=== PATIENT | male | born 1940 | race Two or more races ===

== ENCOUNTER 2022-01-06 06:56 | Day surgery (SDC) | payer OTHER ==
[~2022-01-06] VITALS: Ht 177.8 cm; Wt 97.0 kg
[~2022-01-06 06:56] MED LIST: ALOGLIPTIN12.5 M1 PO; AMLO10 PO; Carvedilol12.5 MG PO; ELIQUIS5 M2 PO; FERSU300 PO; METFORMIN ER1000 M1 PO; OMEP20ER PO; POTA10T PO
--- NOTE | 2022-01-06 08:17 | NUR ---
01/06/22 0817 Raul Adair CALL LIGHT WITHIN REACH. FAMILY AT BEDSIDE.
== END 2022-01-06 10:04 | disposition home or self-care (01) ==
LOC: ORSCSDS 06:56
PROVIDERS: Surgery
PROC: 0DB68ZX Excision of Stomach, Via Natural or Artificial Opening Endoscopic, Diagnostic (ICD-10-PCS; principal; 2022-01-06 09:00)
PROC: 0DB58ZX Excision of Esophagus, Via Natural or Artificial Opening Endoscopic, Diagnostic (ICD-10-PCS; principal; 2022-01-06 09:00)
DX: K21.9 Gastro-esophageal reflux disease without esophagitis (principal); K22.70 Barrett's esophagus without dysplasia; K22.5 Diverticulum of esophagus, acquired; K44.9 Diaphragmatic hernia without obstruction or gangrene; R13.10 Dysphagia, unspecified; E11.9 Type 2 diabetes mellitus without complications; I10 Essential (primary) hypertension; Z86.711 Personal history of pulmonary embolism; E78.5 Hyperlipidemia, unspecified; R97.20 Elevated prostate specific antigen [PSA]; Z79.01 Long term (current) use of anticoagulants; Z79.84 Long term (current) use of oral hypoglycemic drugs; Z79.899 Other long term (current) drug therapy; Z87.891 Personal history of nicotine dependence
CPT/HCPCS: 82947; 88305; 88342; J2704; J7120

== ENCOUNTER 2022-08-02 11:17 | Emergency (ER) | payer OTHER ==
[~2022-08-02] VITALS: Ht 177.8 cm; Wt 90.7 kg
[~2022-08-02 11:17] MED LIST changes: +GLIP5 PO
[2022-08-02] MEDS ORDERED: OMEP20ER (12:05)
[2022-08-02] MEDS ORDERED: Neurontin 100100 MG PO ×2 (13:46→14:43)
== END 2022-08-02 13:55 | disposition home or self-care (01) ==
LOC: ER 11:17
DX: M54.42 Lumbago with sciatica, left side (principal); K21.9 Gastro-esophageal reflux disease without esophagitis; E11.9 Type 2 diabetes mellitus without complications; I10 Essential (primary) hypertension; Z79.01 Long term (current) use of anticoagulants; Z79.899 Other long term (current) drug therapy; Z79.84 Long term (current) use of oral hypoglycemic drugs; Z88.2 Allergy status to sulfonamides; Z88.8 Allergy status to other drugs, medicaments and biological substances
CPT/HCPCS: A9270

== ENCOUNTER 2022-10-30 08:35 | Day surgery (SDC) | payer OTHER ==
[~2022-10-30] VITALS: Ht 177.8 cm; Wt 92.5 kg
[~2022-10-30 08:35] MED LIST changes: +ASPI81CH PO; +ATOR40TA PO; +Neurontin 100100 MG PO
[2022-10-30 09:30] LABS: BASOPHILS ABSOLUTE AUTO 0.05 K/mm3 (0.00-0.23); BASOPHILS PERCENT AUTO 1 % (0-2); EOSINOPHILS ABSOLUTE AUTO 0.61 K/mm3 (0.00-0.68); EOSINOPHILS PERCENT AUTO 8 % (0-6); Hematocrit 42.2 % (37.0-53.0); Hemoglobin 14.4 g/dL (13.5-17.5); IMMATURE GRAN ABSOLUTE AUTO 0.02 K/mm3 (0.00-0.10); IMMATURE GRAN PERCENT AUTO 0 % (0-1); LYMPHOCYTES ABSOLUTE AUTO 2.23 K/mm3 (0.84-5.20); LYMPHOCYTES PERCENT AUTO 29 % (21-46); MONOCYTES ABSOLUTE AUTO 0.66 K/mm3 (0.16-1.47); MONOCYTES PERCENT AUTO 9 % (4-13); Mean Corpuscular HGB 31.5 pg (26.0-34.0); Mean Corpuscular HGB Conc 34.1 g/dL (31.5-36.5); Mean Corpuscular Volume 92 fL (80-100); Mean Platelet Volume 11.3 fL (9.1-12.4); NEUTROPHILS ABSOLUTE AUTO 4.03 K/mm3 (1.96-9.15); NEUTROPHILS PERCENT AUTO 53 % (41-73); Platelet Count 192 K/mm3 (150-400); RDW Coefficient Variation 13.4 % (11.7-14.2); RDW Standard Deviation 45.6 fL (35.1-46.3); Red Blood Cell Count 4.57 M/mm3 (4.30-5.90)
[2022-10-30 09:47] LABS: International Normalized Ratio 1.04; Prothrombin Time Results 10.9 Sec (9.7-11.5)
[2022-10-30 09:49] LABS: Bun/Creatinine Ratio 13.7 (12.0-20.0); Calcium, Blood 8.4 mg/dL (8.5-10.1); Creatinine, Blood 1.02 mg/dL (0.60-1.20); Potassium, Blood 4.3 mmol/L (3.5-5.5)
--- NOTE | 2022-10-30 11:20 | NUR ---
2 CC OF AIR REMOVED FROM TR BAND. SITE C/D/I. NO EVIDENCE OF HEMATOMA. PATIENT DENIES ANY NUMBNESS OR TINGLING. VSS ON ROOM AIR.
--- NOTE | 2022-10-30 11:40 | NUR ---
ALL AIR REMOVED FROM TR BAND. SITE C/D/I, SOFT/NONTENDER. NO EVIDENCE OF HEMATOMA. PATIENT SITTING UPRIGHT IN RECLINER, CONVERSING APPROPRIATELY WITH FAMILY. VSS ON ROOM AIR.
--- NOTE | 2022-10-30 12:30 | NUR ---
PATIENT DISCHARGED AT THIS TIME VIA WHEELCHAIR. PATIENT DISCHARGE INSTRUCTIONS REVIEWED WITH PATIENT AND SPOUSE. CLOTH DOT APPLIED TO R RADIAL ACCESS SITE. SITE C/D/I, SOFT/NONTENDER, NO EVIDENCE OF HEMATOMA. VSS ON ROOM AIR.
== END 2022-10-30 12:50 | disposition home or self-care (01) ==
LOC: MHTC 08:35
PROVIDERS: Internal Medicine Cardiovascular Disease
DX: I25.10 Atherosclerotic heart disease of native coronary artery without angina pectoris (principal); I44.0 Atrioventricular block, first degree; I45.2 Bifascicular block; I10 Essential (primary) hypertension; E78.5 Hyperlipidemia, unspecified; E11.9 Type 2 diabetes mellitus without complications; Z88.2 Allergy status to sulfonamides; Z88.8 Allergy status to other drugs, medicaments and biological substances; Z79.01 Long term (current) use of anticoagulants; Z79.84 Long term (current) use of oral hypoglycemic drugs; Z79.899 Other long term (current) drug therapy
CPT/HCPCS: 76937; 80048; 85025; 85610; 93454; 99152; 99153; A9270; C1769; C1887; C1894; J2250; J3010; J7030; J7050; Q9967

== ENCOUNTER 2024-07-28 08:13 | Observation (INO) | payer OTHER ==
[~2024-07-28] VITALS: Ht 175.3 cm; Wt 89.6 kg
[2024-07-28] VITALS (27 sets, daily range): BP systolic 122–206; BP diastolic 60–97
[~2024-07-28 08:13] MED LIST changes: +ALOGLIPTIN25 M1 PO; +ASCORBIC ACID500 MG PO; +Acetaminophen 500 MG Tab PO SCH; +CALCIUM CITRATE PO; +FERSU300; +JARDIANCE10 MG PO; +LOSARTAN POTAS100 M1 PO; +Lactated Ringer's 1,000 ML IV SCH; +Lopressor 25 mg25 MG PO; +VITAMIN D310 MC4 PO; +Vitamin B Comple1 EA PO; +ZINC15 PO
--- NOTE | 2024-07-28 08:47 | NUR ---
Ambulatory in Day Surgery History, Chart, Medications and Allergies reviewed before start of procedure.Pt reports 5/10 low back pain.Lungs clear T/O to Auscultation. Patient confirms NPO status and agrees with scheduled surgery. Patient States Post-Procedure ride home has been arranged.
[2024-07-28] MEDS ORDERED: Magnesium Sulfate 500 MG / ML 2ML Vial IV ONE (10:30)
[2024-07-28] MEDS ORDERED: Citric Acid/Sodium Citrate 30 ML BTL PO ONE (10:40)
[2024-07-28] MEDS ORDERED: Bupivacaine 0.5% HCl 5 MG/ML 30MLVIAL ONE (10:44)
[2024-07-28] MEDS ORDERED: propofoL 20 ML IV ONE (10:45)
[2024-07-28] MEDS ORDERED: FentaNYL Citrate 50 MCG/ML 2 ML Injection ONE (10:45)
[2024-07-28] MEDS ORDERED: FLU VACC TS2024-25(6MOS UP)/PF 45 MCG/0.5 ML SYRINGE IM PRN (10:55)
[2024-07-28] MEDS ORDERED: OxyCODONE HCL 5 MG TAB PO PRN ×2 (11:00→20:06)
[2024-07-28] MEDS ORDERED: Ondansetron HCl 2 MG / ML 2ML Vial IV PRN (11:00)
[2024-07-28] MEDS ORDERED: HYDROmorphone HCl/Pf 1MG SYR IV PRN (11:00)
[2024-07-28] MEDS ORDERED: Acetaminophen 325 MG TABLET PO PRN (11:00)
[2024-07-28] MEDS ORDERED: Insulin Regular 100 UNIT/ML 10ML Vial SC SCH (11:30)
[2024-07-28] MEDS ORDERED: Metoclopramide HCl 5MG / ML 2ML Vial ONE (11:48)
[2024-07-28] MEDS ORDERED: Rocuronium Bromide 10 MG/ML 5ML Injection IV ONE ×2 (11:48→12:16)
[2024-07-28] MEDS ORDERED: Ondansetron HCl 2 MG / ML 2ML Vial ONE (11:48)
[2024-07-28] MEDS ORDERED: Sugammadex Sodium 200 MG/2ML SDV (100 MG/ML) ONE (13:00)
[2024-07-28] MEDS ORDERED: Labetalol HCL 5 MG/ML 4ML Injection (Single Dose) ONE (13:13)
[2024-07-28] MEDS ORDERED: HydrALAZINE HCl 20 MG / ML 1ML Vial ONE (13:23)
--- NOTE | 2024-07-28 15:19 | NUR ---
POST OP S/P ROBOTIC GIOVANI FUNDOPLICATION. X4 LAP SITES TO ABD WITH EXOFIN GLUE ARE CDI. PT REPORTS ABD "TIGHTNESS", BUT DECLINES PAIN MEDICATIONS. DENIES N/V. SIPPING ON SIPS OF WATER. POST OP VSS AND IN PROGRESS. EDUCATED ON POST OP TREATMENT PLAN AND ORIENTED TO ROOM AND CALL LIGHT. PT'S AT BEDSIDE FOR SUPPORT.
--- NOTE | 2024-07-28 17:44 | NUR ---
SHIFT SUMMARY PT DOING WELL POST OP. TOLERATING CLEARS AND FULL LIQS WITH NO N/V. ROXICODONE + DILAUDID FOR BREAKTHROUGH PAIN MANAGMENT. PLAN TO MOBILIZE PT BEFORE SHIFT CHANGE TO BATHROOM. AT BEDSIDE. CALL LIGHT WITHIN REACH.
[2024-07-28] MEDS ORDERED: Metoprolol Tartrate 25 MG Tab PO SCH (21:00)
[2024-07-28] MEDS ORDERED: Atorvastatin 40 MG Tab PO SCH (21:00)
--- NOTE | 2024-07-29 05:44 | NUR ---
SHIFT SUMMARY AOX4. VSS. POD 1- ROBOTIC FUNDOPLICATION. 4 LAP SITES HORIZONTAL ACROSS UPPER ABD W/WOUND GLUE INTACT, NO DRAINAGE. PT DENIES N/V OR ABD PAIN. TOLERATING PO. DENIES PASSING FLATUS. HAS VOIDED MULTIPLE TIMES. REPORTS 6/10 SHOULDER & NECK PAIN, MEDICATED 2x W/10MG ROXICODONE & PT STATES RELIEF & ABLE TO FALL ASLEEP.
[2024-07-29 05:56] VITALS: BP 151/65
[2024-07-29 06:32] LABS: Hematocrit 44.6 % (37.0-53.0); Hemoglobin 14.7 g/dL (13.5-17.5)
[2024-07-29 06:57] LABS: Calcium, Blood 8.3 mg/dL (8.5-10.1); Creatinine, Blood 1.19 mg/dL (0.60-1.20); Potassium, Blood 4.2 mmol/L (3.5-5.5)
[2024-07-29 07:15] VITALS: BP 121/73
[2024-07-29] MEDS ORDERED: Losartan Potassium 50 MG Tab PO SCH (09:00)
[2024-07-29] MEDS ORDERED: Enoxaparin 40 MG/0.4 ML SYR SC SCH (09:00)
[2024-07-29] MEDS ORDERED: Empagliflozin 10 MG TAB PO SCH (09:00)
[2024-07-29] MEDS ORDERED: Aspirin 81 MG Chew PO SCH (09:00)
[2024-07-29] MEDS ORDERED: OXYC5 PO (10:19)
[2024-07-29] MEDS ORDERED: ACET325 PO (10:27)
[2024-07-29] MEDS ORDERED: OXAYDO5 M3 PO (10:28)
--- NOTE | 2024-07-29 11:32 | NUR ---
DISCHARGE PT PROVIDED WITH WRITTEN AND VERBAL DISCHARGE INSTRUCTIONS, HE REPORTED UNDERSTANDING. PAIN MANAGED WITH PO PAIN MEDICATION AT TIME OF DISCHARGE. VSS. PT AMBULATED OUT INDEPENDENTLY AT 1134.
== END 2024-07-29 11:31 | disposition home or self-care (01) ==
LOC: ORSCMMR 08:13 → SURS 10:29 → ORSCMMR 10:29 → SURS 13:05
PROVIDERS: ADMIT Surgery
DX: K44.9 Diaphragmatic hernia without obstruction or gangrene (principal); K22.70 Barrett's esophagus without dysplasia; K21.9 Gastro-esophageal reflux disease without esophagitis; I10 Essential (primary) hypertension; E78.5 Hyperlipidemia, unspecified; E11.9 Type 2 diabetes mellitus without complications; Z87.891 Personal history of nicotine dependence; Z88.2 Allergy status to sulfonamides; Z88.8 Allergy status to other drugs, medicaments and biological substances; Z79.01 Long term (current) use of anticoagulants; Z79.82 Long term (current) use of aspirin; Z79.84 Long term (current) use of oral hypoglycemic drugs; Z79.899 Other long term (current) drug therapy
CPT/HCPCS: 36415; 80048; 82947; 85014; 85018; A9270; C1781; J0360; J1171; J1650; J2405; J2704; J2765; J3010; J3475; J7120